=== PATIENT | male | born 1955 | race Caucasian/White ===

== ENCOUNTER 2016-12-05 12:58 | Emergency (ER) | payer MEDICARE ==
[2016-12-05] MEDS ORDERED: oxyCODONE HCL/ACETAMINOPHEN 1 TAB TABLET PO ONE (17:19)
--- NOTE | 2016-12-05 17:28 | ERNOTE ---
Lower Extremity HPI - Narrative Date of Service: 12/05/16 - General Lower Extremities Pain: hip: left Time Seen by Provider: 12/05/16 17:10 Source: patient, family Exam Limitations: no limitations - Immun/Allergies/Home Medications Immunizations: IMMUNIZATION HX Immunizations Up to Date Yes History of Influenza Vaccine Yes Hx Pneumococcal Vaccination No Allergies/Adverse Reactions: Allergies Allergy/AdvReac Type Severity Reaction Status Date / Time aspirin Allergy Mild Verified 12/05/16 13:25 Home Medications: HOME MEDICATIONS ALPRAZolam [Xanax] 12/20/14 [Last Taken Unknown] Escitalopram Oxalate [Lexapro] 20 mg PO DAILY 12/20/14 [Last Taken Unknown] Gabapentin 12/20/14 [Last Taken Unknown] Lisinopril-Hctz 20-12.5 mg Tab 12/20/14 [Last Taken Unknown] Cyclobenzaprine HCl 2 tab PO HS #10 tablet 12/05/16 [Last Taken Unknown] oxyCODONE HCL/ACETAMINOPHEN [Percocet 5 MG/325 MG] 2 tab PO QID PRN #40 tab [Last Taken Unknown] - History of Present Illness Narrative: Yesterday was trying to rescue a neighbor's dog from a potential motor vehicle accident. He picked it up and twisted, and felt something give in his low back. Today he can barely move, with pain all the way down into his left lower leg, difficulty bearing weight and numbness in his left leg. Occurred: yesterday Location of Incident: home Method of Injury: Reports: other Reason for Fall: Reports: other - no fall Loss of Consciousness: Reports: no loss of consciousness Modifying Factors - (Improves): Reports: other - nothing Modifying Factors - (Worsens): Reports: jarring, movement Associated Symptoms: Denies: unable to bear weight, bowel/bladder problems Other Injuries: Reports: none Subsequent Symptoms: Reports: numbness. Denies: bowel/bladder problem Prior Treament: Denies: recently seen, similar symptoms before Review of Systems - Review of Systems Constitutional: Present: no symptoms reported EYE: Present: no symptoms reported ENT: Present: no symptoms reported Respiratory: Present: no symptoms reported Cardiology: Present: no symptoms reported Gastrointestinal/Abdominal: Present: no symptoms reported Genitourinary: Present: no symptoms reported Musculoskeletal: Present: See HPI Skin: Present: no symptoms reported Neurological: Present: no symptoms reported Endocrine: Present: no symptoms reported Hematologic/Lymphatic: Present: no symptoms reported Psych: Present: no symptoms reported All Other Systems: All systems neg except as marked - Patient's Past Medical History Patient History - Medical: Anxiety, Depression, GERD Patient History - Cancer: No Hx of Cancer Patient History - Surgical Procedures: Other - Social History Smoking Status: Current every day smoker Have you smoked in the past 12 months: Yes Do you dip or chew tobacco: No Alcohol Use: none Drug Use: none Physical Exam - Physical Exam General Appearance: Present: wd/wn, alert, no apparent distress Eye Exam: Normal inspection: bilateral, PERRL: bilateral, EOMI: bilateral Ears, Nose, Throat: Present: normal ENT inspection, hearing grossly normal Neck: Present: normal inspection Respiratory: Present: no respiratory distress Cardiovascular/Chest: Present: regular rate, rhythm Back Exam: Present: no vertebral tenderness, muscle spasm - muscle spasm and tenderness low back left. Extremity Exam: Present: normal inspection, no edema Neurological Exam: Present: alert, oriented, normal mood/affect, no motor/ sensory deficits Skin Exam: Present: normal color, warm/dry ED Progress - Vital Signs Patient's Vital Signs:: I have reviewed the patient's vital signs. Vital Signs: Vital Signs 12/05/16 13:22 Temperature 36.2 C L Pulse Rate 77 Respiratory 14 Rate Blood Pressure 151/96 O2 Sat by Pulse 97 Oximetry - X-Ray X-Ray #1 X-Ray: hip Interpretation: Interp. by me - non acute - Progress/Reassessment Chief Complaint: Lower Extremity Pain/ Injury Departure Clinical Impression: Muscle strain - Departure Disposition: Home self-care Condition: Good Instructions: Muscle Strain, [id number], RICE for Routine Care of Injuries, [id number] Additional Instructions: See your doctor sometime next week. Consider visiting a chiropracter. Referrals: Katia Rico MD [Primary Care Provider] - Prescriptions: Cyclobenzaprine HCl 2 tab PO HS #10 tablet oxyCODONE HCL/ACETAMINOPHEN [Percocet 5 MG/325 MG] 2 tab PO QID PRN #40 tab PRN Reason: Pain
[2016-12-05] MEDS ORDERED: oxyCODONE HCL/ACETAMINOPHEN 1 TAB TABLET ONE (17:31)
[2016-12-05] MEDS ORDERED: CYCLOBENZAPRINE HCL 10 MG TABLET ONE (17:31)
[2016-12-05] MEDS: CYCLOBENZAPRINE HCL 10 MG TABLET PO ONE ×2 (17:36→17:37)
[2016-12-05 17:49] VITALS: BP 155/88
== END 2016-12-05 17:50 | disposition home or self-care (01) ==
LOC: ER 12:58
DX: S76.012A Strain of muscle, fascia and tendon of left hip, initial encounter (principal); X50.0XXA Overexertion from strenuous movement or load, initial encounter; Y93.89 Activity, other specified; F17.210 Nicotine dependence, cigarettes, uncomplicated